=== PATIENT | male | born 1935 | race Caucasian/White ===

== ENCOUNTER 2019-08-06 12:51 | Emergency (ER) | payer MEDICARE ==
[2019-08-06] MEDS ORDERED: SODIUM CHLORIDE 0.9% 1000ML 500 ML IVS ONE (13:13)
[2019-08-06] MEDS ORDERED: ONDANSETRON INJ 4 MG/2 ML VIAL IV ONE ×2 (13:13→13:27)
[2019-08-06] MEDS ORDERED: MULTIPLE VITAMIN INJ 10 ML, THIAMINE HCL INJ 100 MG in SODIUM CHLORIDE 0.9% 1000ML 1,00... IVS ONE (13:14)
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
[2019-08-06] MEDS ORDERED: PANTOPRAZOLE SODIUM IV 40 MG VIAL IV ONE (13:27)
[2019-08-06] MEDS ORDERED: MORPHINE SULFATE INJ 10 MG/ML VIAL IV ONE (13:27)
[2019-08-06] MEDS ORDERED: THIAMINE HCL INJ 100 MG/ML VIAL ONE (13:39)
[2019-08-06] MEDS ORDERED: MULTIPLE VITAMIN 10 ML VIAL ONE (13:40)
--- NOTE | 2019-08-06 14:33 | RAD ---
EXAM: XR Chest, 1 View CLINICAL HISTORY: fall TECHNIQUE: Frontal view of the chest. COMPARISON: No relevant prior studies available. FINDINGS: Lungs: Chronic obstructive changes present with symmetrical interstitial scarring noted. No consolidation. Pleural space: Unremarkable. No pneumothorax. Heart: Unremarkable. No cardiomegaly. Mediastinum: Unremarkable. Bones/joints: Unremarkable. IMPRESSION: No acute findings in the chest. Electronically signed by: Jordyn Steele MD 08/06/2019 2:31 PM CDT
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
[2019-08-06 15:42] VITALS: BP 148/68; TEMP 98.1; O2SAT 95
== END 2019-08-06 15:41 | disposition short-term general hospital (02) ==
LOC: ER 12:51
DX: S06.5X9A Traumatic subdural hemorrhage with loss of consciousness of unspecified duration, initial encounter (principal); I25.2 Old myocardial infarction; Z95.5 Presence of coronary angioplasty implant and graft; K92.0 Hematemesis; Z86.73 Personal history of transient ischemic attack (TIA), and cerebral infarction without residual deficits; W18.30XA Fall on same level, unspecified, initial encounter; Y92.009 Unspecified place in unspecified non-institutional (private) residence as the place of occurrence of the external cause
CPT/HCPCS: 70450; 70486; 71045; 72125; 80053; 80320; 84484; 85025; 85610; 93005; J2270; J2405; J3411; J7030